=== PATIENT | male | born 1980 | race Asian ===

== ENCOUNTER 2024-10-28 22:25 | Emergency (ER) | payer MEDICAID ==
[~2024-10-28] VITALS: Ht 182.9 cm; Wt 111.0 kg
[2024-10-28 23:01] VITALS: BP 182/88; RESP 18; TEMP 98.2; O2SAT 100
[2024-10-28 23:02] VITALS: PULSE 97; O2SAT 99
[2024-10-28] MEDS: TETRACAINE 0.5% OPHTH DROPS 4ML RIGHTEYE ONE (23:15)
[2024-10-29] MEDS: TETRACAINE 0.5% OPHTH DROPS 4ML RIGHTEYE NR (01:15)
[2024-10-29] MEDS: FLUORESCEIN SODIUM 1MG/STRIP RIGHTEYE NR (01:15)
[2024-10-29] MEDS: FLUORESCEIN SODIUM 1MG/STRIP RIGHTEYE ONE (01:50)
[2024-10-29] MEDS ORDERED: OFLO5DRO LEFTEYE (02:19)
== END 2024-10-29 02:25 | disposition home or self-care (01) ==
LOC: ER 22:25
DX: S05.00XA Injury of conjunctiva and corneal abrasion without foreign body, unspecified eye, initial encounter (principal); H57.12 Ocular pain, left eye; I50.9 Heart failure, unspecified; W26.8XXA Contact with other sharp object(s), not elsewhere classified, initial encounter; Y93.89 Activity, other specified; Y92.89 Other specified places as the place of occurrence of the external cause; Y99.8 Other external cause status
CPT/HCPCS: 99283